=== PATIENT | male | born 1945 | race Caucasian/White ===

== ENCOUNTER → 2017-02-18 | Outpatient (CLI) | payer MEDICARE, BC ==
[~2017-02-18] MED LIST: ASPIRIN EC81 MG PO; ATORVASTATIN CA80 MG PO
== END | disposition disaster alternative care site (69) ==
LOC: GRAD 10:15
DX: M51.36 Other intervertebral disc degeneration, lumbar region (principal); M48.06 Spinal stenosis, lumbar region; M43.16 Spondylolisthesis, lumbar region; M54.5 Low back pain

== ENCOUNTER → 2017-03-29 | Day surgery (SDC) | payer MEDICARE, BC ==
[~2017-03-29] VITALS: Ht 167.6 cm; Wt 82.8 kg
--- NOTE | ~2017-03-29 | OR ---
PATIENT'S NAME: CURTIS CARRILLO [facility] AGE: 72 Y [address] ROOM: [place] [id number] [place] [facility] [place]: 03/29/2017 OR/Procedure Report DISCHARGE DATE: FAMILY PHYSICIAN: PHYSICIAN, NO ATTENDING PHYSICIAN: Yesika Savage SURGEON: Destiny Anand MD PAYMENT COLLECTOR: DATE OF PROCEDURE: 03/29/2017 PROCEDURE: L4-L5 interlaminar epidural steroid injection. INDICATION: The patient has lumbar canal stenosis, degenerative disk disease, and low back pain. Risks, benefits, and alternatives explained to the patient and wished to proceed. PROCEDURE IN DETAIL: The patient was taken to the procedure room and placed in prone position. His back was prepped with Betadine x3 and a sterile drape applied on top. Next, fluoroscopy was used to identify the L4-L5 disk interspace. 3 mL of 1% lidocaine was used to numb the skin. Then, under fluoroscopic guidance and loss of resistance technique, an 18-gauge Tuohy was advanced in position. Once it was felt to be in position, 1 mL of contrast was injected, showing good epidural spread, no intrathecal uptake, no intravascular uptake. Then, a mixture of 2 mL of 0.25% bupivacaine and 80 mg of Depo-Medrol were injected into the epidural space. Then, the stylette placed and needle withdrawn. COMPLICATIONS: None. BLOOD LOSS: None. DESTINY ANAND MD JJP/modl /[id number] d: 03/30/17 0147 t: 04/07/17 1249, OPERATIVE SUMMARY
== END | disposition disaster alternative care site (69) ==
LOC: GPOC 03-26 10:00 → GSDC 10:00
PROC: 3E0R33Z Introduction of Anti-inflammatory into Spinal Canal, Percutaneous Approach (ICD-10-PCS; principal; 2017-03-29)
PROC: 3E0R3BZ Introduction of Anesthetic Agent into Spinal Canal, Percutaneous Approach (ICD-10-PCS; 2017-03-29)
PROC: B01BZZZ Fluoroscopy of Spinal Cord (ICD-10-PCS; 2017-03-29)
DX: M54.5 Low back pain (principal); M48.06 Spinal stenosis, lumbar region; E78.5 Hyperlipidemia, unspecified; M51.36 Other intervertebral disc degeneration, lumbar region; Z98.890 Other specified postprocedural states
CPT/HCPCS: J1040